=== PATIENT | male | born 1975 | race Caucasian/White ===

== ENCOUNTER 2023-11-11 22:42 | Emergency (ER) | payer OTHER, MEDICAID ==
[~2023-11-11] VITALS: Ht 170.2 cm; Wt 77.1 kg
[2023-11-11 23:00] VITALS: BP_SYST 135; PULSE 74; RESP 19; TEMP 97.6; O2SAT 99
== END 2023-11-11 23:43 | disposition left against medical advice (07) ==
LOC: SED 22:42
DX: R07.89 Other chest pain (principal); Z53.21 Procedure and treatment not carried out due to patient leaving prior to being seen by health care provider
CPT/HCPCS: 93005; 99281